=== PATIENT | male | born 1990 | race Caucasian/White ===

== ENCOUNTER 2022-11-30 08:09 | Outpatient (CLI) | payer OTHER, SELFPAY ==
--- NOTE | 2022-12-24 20:57 | WPDSLEEPSTUD ---
Sleep Study Date of Study: 11/30/22 Ordering Provider: Yonny Alcocer MD Interpreting Physician: Baylee Sampson MD Sleep Study Type: Split Polysomnogram Height: 1.85 m Weight: 122.47 kg Body Mass Index: 35.6 Neck Circumference (inches): 17 [place]: 10 Reason for Sleep Study Snoring, daytime fatigue Sleep History Omar Mcknight is a 32-year-old man with a long history of snoring. Over the last 2 years he is reports being more tired in the daytime. He has started waking up throughout the night. There is a family history of sleep issues, his dad uses a sleep machine. He frequently awakens from sleep feeling short of breath. He occasionally wakes at night with heartburn, belching or coughing. He constantly snores loudly enough that others complain about it. He occasionally has difficulty sleeping with a cold. He rarely wakes up gasping for breath at night. He occasionally has breathing problems at night observed by others. Occasionally sweats excessively at night. He rarely notices his heart pounding or beating irregularly at night. He occasionally falls asleep during the day, occasionally falls asleep involuntarily, rarely falls asleep while driving. He does not have loss of muscle tone with strong emotion. He does not have daytime difficulties due to excessive sleepiness. Does not feel paralyzed on waking or falling asleep. He frequently has vivid dreamlike scenes upon awakening or falling asleep. He does not feel afraid to go to sleep. He occasionally has nightmares. He occasionally remembers his dreams. He frequently has racing thoughts. He rarely feels sad or depressed. He frequently has anxiety. He rarely has muscular tension. He does not notice parts of his body jerking. He occasionally kicks at night. He occasionally has crawling and aching feelings in his legs. Occasionally has leg pain at night. He rarely has morning jaw pain. He rarely grinds his teeth during sleep. He rarely is bothered by pain during the day and rarely awakened by pain at night. He occasionally wakes up feeling stiff in the morning. He rarely wakes up with sore or achy muscles. He occasionally wakes up with pain in the neck and spine. Has memory problems and nightmares. Sometimes he takes a nap in the afternoon or evening. A short nap lasting 10 or 15 minutes may be refreshing. He is usually drowsy for an hour after waking. He feels better in the afternoon or evening compared to the morning. He reports a 25 lb weight gain in the last year. Normal bedtime is 9:30 p.m. to 10:00 p.m., falling asleep within 5 minutes, typically waking 2-3 times at night to go to the bathroom and get a drink of water. He is able to return to sleep within a few minutes. He wakes at 6 in the morning. On weekends, bedtime is later, between 1:00 a.m. and 2:00 a.m., wakes between 9:00 a.m. and 10:00 a.m.. He estimates getting 6-7 hours of sleep at night. Habits: Tobacco half pack per day. He drinks caffeine. He drinks alcohol but not daily, 8 beverages on occasion. No recreational substances. [facility] Past Medical History Medical History Asthma due to seasonal allergies Surgical History Surgical History History of hernia repair Family History Family History Grandparent Hypertension Family history of malignant neoplasm of breast Family history of heart disease in male family member before age 55 Father Hypertension Gout GERD (gastroesophageal reflux disease) Mother Distal muscular dystrophy Rheumatoid arthritis Hypertension Ulcer Hiatal hernia Pulmonary embolism GERD (gastroesophageal reflux disease) Social History Social History Smoking status: Never smoker Tobacco type: cigarettes Second hand tobacco smoke
[2022-12-25 13:14] VITALS: BMI 35.6
--- NOTE | 2023-08-12 14:33 | SLEEP ---
pt states he is unable to pay for device
== END 2022-12-01 06:13 | disposition home or self-care (01) ==
LOC: ANHCSM 08:10
PROVIDERS: PCP Family Medicine; Visit Provider Family Medicine
DX: G47.30 Sleep apnea, unspecified (principal)
CPT/HCPCS: 95811